=== PATIENT | male | born 1960 | race Caucasian/White ===

== ENCOUNTER 2017-05-25 09:45 | Emergency (ER) | payer MEDICARE ==
[~2017-05-25] VITALS: Ht 180.3 cm; Wt 87.0 kg
[~2017-05-25 09:45] MED LIST: HYDR-3240 PO
[2017-05-25 09:54] VITALS: BP 154/93
[2017-05-25 10:32] LABS: HEMATOCRIT 45.9 % (39.2-51.8); HEMOGLOBIN 15.6 g/dL (13.7-18.0); WHITE BLOOD COUNT 9.3 x10^3/uL (3.4-10)
[2017-05-25 10:44] LABS: BLOOD UREA NITROGEN 18 mg/dL (7-18)
[2017-05-25 12:10] LABS: PATH.CAST-FLAG NOT PRESENT; SPERM-FLAG NOT PRESENT; SRC-FLAG NOT PRESENT; XTAL-FLAG NOT PRESENT; YLC-FLAG NOT PRESENT
== END 2017-05-25 12:55 | disposition home or self-care (01) ==
LOC: ED 11:44
DX: N30.00 Acute cystitis without hematuria (principal); J44.9 Chronic obstructive pulmonary disease, unspecified
CPT/HCPCS: 36415; 74176; 80048; 81001; 82040; 85025; 87086; 99285

== ENCOUNTER 2017-06-21 12:34 | Emergency (ER) | payer MEDICARE ==
[~2017-06-21] VITALS: Ht 180.3 cm; Wt 86.0 kg
[2017-06-21 13:39] LABS: BASOPHILS # (AUTO) 0.02 x10^3/uL (0-0.1); BASOPHILS % (AUTO) 0 % (0-1); EOSINOPHILS # (AUTO) 0.13 x10^3/uL (0-0.4); EOSINOPHILS % (AUTO) 2 % (1-7); LYMPHOCYTES # (AUTO) 2.11 x10^3/uL (1-3.4); LYMPHOCYTES % (AUTO) 24 % (22-44); MD NO; MEAN CORPUSCULAR HEMOGLOBIN 29.5 pg (27.5-34.5); MEAN CORPUSCULAR HGB CONC 33.7 g/dL (33.2-36.2); MEAN CORPUSCULAR VOLUME 87.7 fL (81-97); MONOCYTES # (AUTO) 0.79 x10^3/uL (0.2-0.8); MONOCYTES % (AUTO) 9 % (2-9); NEUTROPHILS # (AUTO) 5.64 x10^3/uL (1.8-6.8); NEUTROPHILS % (AUTO) 65 % (42-75); PLATELET COUNT 265 x10^3/uL (130-400); RED BLOOD COUNT 5.41 x10^6/uL (4.38-5.82); RED CELL DISTRIBUTION WIDTH 13.6 % (9.4-14.8)
[2017-06-21 13:52] LABS: ALBUMIN 3.8 g/dL (3.4-5.0); ANION GAP 7 mmol/L (5-15); CALCIUM 8.9 mg/dL (8.5-10.1); CHLORIDE 105 mmol/L (98-107)
[2017-06-21 15:20] VITALS: BP 169/87
[2017-06-21 15:27] LABS: MICROSCOPIC AUTO
[2017-06-21] MEDS ORDERED: CEFTRIAXONE 250 MG IM ONE (15:30)
[2017-06-21] MEDS ORDERED: AZITHROMYCIN 500 MG TABLET PO ONE (15:30)
[2017-06-21 15:35] LABS: CULTURE INDICATED? YES
[2017-06-21] MEDS ORDERED: CEFTRIAXONE 250 MG ONE (15:35)
[2017-06-21] MEDS ORDERED: AZITHROMYCIN 500 MG TABLET ONE (15:35)
== END 2017-06-21 16:35 | disposition home or self-care (01) ==
LOC: ED 16:31
DX: N45.1 Epididymitis (principal); N34.1 Nonspecific urethritis; J44.9 Chronic obstructive pulmonary disease, unspecified
CPT/HCPCS: 36415; 80048; 81001; 82040; 85025; 87086; 87491; 87591; 96372; 99284; J0696

== ENCOUNTER 2018-04-04 03:48 | Emergency (ER) | payer MEDICARE ==
[~2018-04-04] VITALS: Ht 180.3 cm; Wt 87.5 kg
[2018-04-04 05:48] LABS: BASOPHILS # (AUTO) 0.04 x10^3/uL (0-0.1); BASOPHILS % (AUTO) 1 % (0-1); EOSINOPHILS # (AUTO) 0.22 x10^3/uL (0-0.4); EOSINOPHILS % (AUTO) 3 % (1-7); LYMPHOCYTES # (AUTO) 2.02 x10^3/uL (1-3.4); LYMPHOCYTES % (AUTO) 29 % (22-44); MD NO; MEAN CORPUSCULAR HGB CONC 34.3 g/dL (33.2-36.2); MEAN CORPUSCULAR VOLUME 87.7 fL (81-97); MEAN PLATELET VOLUME 9.8 fL (7.4-10.4); MONOCYTES # (AUTO) 0.84 x10^3/uL (0.2-0.8); MONOCYTES % (AUTO) 12 % (2-9); NEUTROPHILS # (AUTO) 3.81 x10^3/uL (1.8-6.8); NEUTROPHILS % (AUTO) 55 % (42-75); PLATELET COUNT 230 x10^3/uL (130-400); RED BLOOD COUNT 5.48 x10^6/uL (4.38-5.82); RED CELL DISTRIBUTION WIDTH 13.3 % (9.4-14.8)
[2018-04-04 05:57] LABS: CHLORIDE 107 mmol/L (98-107)
[2018-04-04 06:13] LABS: ALANINE AMINOTRANSFERASE 33 U/L (12-78); ALBUMIN 3.5 g/dL (3.4-5.0); ALKALINE PHOSPHATASE 211 U/L (45-117); ANION GAP 8 mmol/L (5-15); BILIRUBIN,TOTAL 0.6 mg/dL (0.2-1.0); CALCIUM 8.5 mg/dL (8.5-10.1); CREATININE 1.09 mg/dL (0.7-1.3); TOTAL PROTEIN 7.5 g/dL (6.4-8.2)
[2018-04-04 06:14] VITALS: BP 144/100
[2018-04-04 06:30] LABS: CULTURE INDICATED? YES; MICROSCOPIC AUTO
== END 2018-04-04 07:04 | disposition home or self-care (01) ==
LOC: ED 05:51
DX: N30.20 Other chronic cystitis without hematuria (principal); I16.9 Hypertensive crisis, unspecified; J44.9 Chronic obstructive pulmonary disease, unspecified
CPT/HCPCS: 36415; 76870; 80053; 81001; 83690; 85025; 87086; 99285

== ENCOUNTER 2018-07-26 08:52 | Emergency (ER) | payer MEDICARE ==
[~2018-07-26] VITALS: Ht 180.3 cm; Wt 89.8 kg
[2018-07-26 09:15] VITALS: BP 152/100
--- NOTE | 2018-07-26 09:39 | NUR ---
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
--- NOTE | 2018-07-26 09:50 | NUR ---
ANNEALING FURNACE TENDER: PT TO ROOM FROM ALEJANDRO BURRIS.
--- NOTE | 2018-07-26 10:29 | NUR ---
Patient/Caregiver given discharge instructions and they have confirmed that they understand the instructions. Patient ambulatory with steady gait.
== END 2018-07-26 10:30 | disposition home or self-care (01) ==
LOC: ED 10:18
DX: K02.9 Dental caries, unspecified (principal); F17.200 Nicotine dependence, unspecified, uncomplicated
CPT/HCPCS: 99283

== ENCOUNTER 2019-08-24 16:58 | Emergency (ER) | payer MEDICARE ==
[~2019-08-24] VITALS: Ht 180.3 cm; Wt 80.8 kg
--- NOTE | 2019-08-24 18:37 | NUR ---
TO ROOM FROM LOBBY.
--- NOTE | 2019-08-24 18:49 | NUR ---
FIRST CONTACT WITH PT. PT SITTING UP IN RNEY, AWAKE/ALERT, NAD NOTED. PT REPORTS R GRION PAIN/SWELLING X SIX MONTHS, "I CAN PUSH IT BACK IN". HX OF R INGUINAL HERNIA REPAIR, "A LONG TIME AGO". DENIES REDNESS/WARMTH/DRAINAGE/TESTICULAR PAIN OR PAINFUL URINATION. HX OF URINARY RETENTION, MANAGED W FLOMAX. DENIES N/V/FEVER/CHANGES IN BOWEL OR BLADDER HABITS. BP/SPO2/ECG MONITORING IN PLACE. SINUS TACH ON MONITOR.
[2019-08-24] MEDS ORDERED: TAMS-11 PO (18:54)
[2019-08-24] MEDS ORDERED: SODIUM CHLORIDE 0.9% 1,000ML IVBOLUS ONE (19:30)
[2019-08-24] MEDS ORDERED: ACETAMINOPHEN 500 MG TABLET PO ONE (19:30)
[2019-08-24 19:37] LABS: BASOPHILS # (AUTO) 0.01 x10^3/uL (0-0.1); BASOPHILS % (AUTO) 0 % (0-1); EOSINOPHILS % (AUTO) 0 % (1-7); LYMPHOCYTES # (AUTO) 1.07 x10^3/uL (1-3.4); LYMPHOCYTES % (AUTO) 7 % (22-44); MD NO; MEAN CORPUSCULAR HEMOGLOBIN 30.2 pg (27.5-34.5); MEAN CORPUSCULAR HGB CONC 33.3 g/dL (33.2-36.2); MEAN CORPUSCULAR VOLUME 90.7 fL (81-97); MEAN PLATELET VOLUME 10.7 fL (7.4-10.4); MONOCYTES # (AUTO) 1.08 x10^3/uL (0.2-0.8); MONOCYTES % (AUTO) 7 % (2-9); NEUTROPHILS # (AUTO) 14.33 x10^3/uL (1.8-6.8); NEUTROPHILS % (AUTO) 87 % (42-75); PLATELET COUNT 139 x10^3/uL (130-400); RED BLOOD COUNT 5.62 x10^6/uL (4.38-5.82); RED CELL DISTRIBUTION WIDTH 13.7 % (9.4-14.8)
[2019-08-24] MEDS ORDERED: CLINDAMYCIN PMX 300MG/50ML 50 ML IV ONE (19:45)
[2019-08-24 19:49] LABS: ALBUMIN 3.4 g/dL (3.4-5.0); ANION GAP 8 mmol/L (5-15); CALCIUM 8.8 mg/dL (8.5-10.1); CHLORIDE 97 mmol/L (98-107); CREATININE 1.35 mg/dL (0.7-1.3)
[2019-08-24] MEDS ORDERED: PIPERACILLIN/TAZO/PMX 3.375GM 50 ML ONE (20:12)
--- NOTE | 2019-08-24 20:24 | NUR ---
DELAY IN ABX START D/T DIFFICULTY OBTAINING PIV.
[2019-08-24] MEDS ORDERED: PIPERACILLIN/TAZO/PMX 3.375GM 50 ML IV ONE (20:30)
[2019-08-24] MEDS ORDERED: VANCOMYCIN PER PHARMACY MC PRN (20:30)
--- NOTE | 2019-08-24 20:31 | NUR ---
IV ESTABLISHED. ARANZA AVALOS. BCX2 DRAWN PRIOR TO ADMIN.
--- NOTE | 2019-08-24 20:38 | NUR ---
PT STATES THAT HE DOESN'T WANT TO BE ADMITTED. ERP AWARE.
[2019-08-24] MEDS ORDERED: ACETAMINOPHEN 500 MG TABLET ONE (20:40)
[2019-08-24] MEDS ORDERED: VANCOMYCIN 1,600 MG in SODIUM CHLORIDE 0.9% 250 ML IV ONE (21:00)
--- NOTE | 2019-08-24 21:42 | NUR ---
NO S/S OF ABX RXN NOTED. SECOND ABX INITIATED. BCX2 DRAWN PRIOR TO ADMIN
[2019-08-24 23:04] VITALS: BP 121/78
--- NOTE | 2019-08-24 23:25 | NUR ---
NO S/S OF ABX RXN NOTED. DESPITE EDUCATION AND ADVISEMENT OF ERP, PT ELECTING TO LEAVE AMA VS ADMIT FOR CONTINUED ABX. PT AWARE THAT INFECTION MAY WORSEN AND MAY POSE LIFE THEATENING RISK. PT AWARE OF S/S OF WORSENING CONDITION AND AGREES TO RETURN TO ED IF NEEDED. DC EDUCATION PROVIDED, PT DEMONSTRATES UNDERSTANDING. PT AMBULATED STEADILY TO DC WITH RN.
== END 2019-08-24 23:28 | disposition left against medical advice (07) ==
LOC: ED 23:00
DX: A41.9 Sepsis, unspecified organism (principal); L03.115 Cellulitis of right lower limb; R59.0 Localized enlarged lymph nodes; I49.1 Atrial premature depolarization; J44.9 Chronic obstructive pulmonary disease, unspecified; I10 Essential (primary) hypertension; F17.200 Nicotine dependence, unspecified, uncomplicated; R94.31 Abnormal electrocardiogram [ECG] [EKG]
CPT/HCPCS: 36415; 80048; 82040; 83605; 84145; 85025; 87040; 93005; 96365; 96366; 96367; 99285; J2543; J3370; J7030; J7050